=== PATIENT | male | born 1970 | race Hispanic/Latino ===

== ENCOUNTER 2021-12-01 11:34 | Emergency (ER) | payer SELFPAY ==
[2021-12-01] MEDS ORDERED: SODIUM CHLORIDE 0.9% 1000 ML 1,000 ML IV ONE (12:01)
--- NOTE | 2021-12-01 12:03 | Emergency Department Report ---
ED Shortness of Breath HPI - General Chief Complaint: Dyspnea/Respdistress Stated Complaint: CAN'T HARDLEY BREATH Time Seen by Provider: 12/01/21 11:55 Source: patient Mode of arrival: Ambulatory Limitations: No Limitations - History of Present Illness Initial Comments: Patient presents with exertional dyspnea. This been present for 4 days. He cannot get up and walk to the restroom without getting short of breath. He has to stop and rest. He states that he really is not been able to sleep well. He does not know if that is because he is short of breath all the time because he cannot lie flat. He has had no cough or congestion. Has no chest pain. He has had swelling in his feet but that is not new. That has been ongoing and chronic for him. There is no recent history of travel or trauma. He has no chest pain. Patient has had no fevers or chills. He has never had symptoms of this nature before. Because of the exertional dyspnea, he came here for evaluation. - Related Data Previous Rx's Medication Instructions Recorded Last Taken Type Furosemide [Lasix TAB] 40 mg PO QDAY #15 tablet 12/01/21 Unknown Rx Potassium Chloride 20 meq PO BID #30 tab 12/01/21 Unknown Rx Allergies Allergy/AdvReac Type Severity Reaction Status Date / Time No Known Allergies Allergy Verified 12/01/21 14:53 ED Review of Systems ROS: Stated complaint: CAN'T HARDLEY BREATH Other details as noted in HPI Comment: All other systems reviewed and negative Constitutional: denies: fever Eyes: denies: eye pain ENT: denies: throat pain Respiratory: denies: cough Cardiovascular: as per HPI Endocrine: denies: unexplained weight loss Gastrointestinal: denies: abdominal pain Genitourinary: denies: dysuria Musculoskeletal: denies: back pain Skin: denies: rash Neurological: denies: headache Hematological/Lymphatic: denies: easy bruising ED Past Medical Hx - Past Medical History Previous Medical History?: No - Family History Family history: no significant - Social History Smoking Status: Never Smoker Substance Use Type: None - Medications Home Medications: Home Medications Medication Instructions Recorded Confirmed Last Taken Type Furosemide [Lasix TAB] 40 mg PO QDAY #15 tablet 12/01/21 Unknown Rx Potassium Chloride 20 meq PO BID #30 tab 12/01/21 Unknown Rx ED Physical Exam - General Limitations: No Limitations, Other (Pulse ox noted and normal) General appearance: alert, in distress (Mild), other (Nontoxic) - Head Head exam: Present: atraumatic, normocephalic - Eye Eye exam: Present: normal appearance, PERRL, EOMI - ENT ENT exam: Present: normal orophraynx, normal external ear exam - Neck Neck exam: Present: normal inspection. Absent: meningismus - Respiratory Respiratory exam: Present: normal lung sounds bilaterally, respiratory distress (Mild) - Cardiovascular Cardiovascular Exam: Present: regular rate, normal rhythm. Absent: JVD - GI/Abdominal GI/Abdominal exam: Present: soft. Absent: distended, tenderness - Extremities Exam Extremities exam: Present: normal capillary refill, pedal edema (2+ bilateral), calf tenderness - Back Exam Back exam: Absent: CVA tenderness (R), CVA tenderness (L) - Neurological Exam Neurological exam: Present: alert, oriented X3, CN II-XII intact, reflexes normal. Absent: motor sensory deficit - Psychiatric Psychiatric exam: Present: normal affect, normal mood - Skin Skin exam: Present: warm, dry ED Course Vital Signs 12/01/21 12/01/21 12/01/21 11:45 12:01 12:12 Temperature 97.7 F Pulse Rate 108 H 111 H 110 H Respiratory 22 18 22 Rate Blood Pressure 138/101 134/104 Blood Pressure 134/104 [Right] O2 Sat by Pulse 97 97 96 Oximetry 12/01/21 12/01/21 12/01/21 12:13 12:15 12:31 Temperature Pulse Rate 110 H 108 H Respiratory 19 Rate Blood Pressure 141/103 Blood Pressure [Right] O2 Sat by Pulse 100 97 Oximetry 12/01/21 12/01/21 12/01/21 13:01 13:31 14:01 Temperature Pulse Rate 107 H 107 H 113 H Respiratory 23 18 30 H Rate Blood Pressure 155/110 151/119 130/87 Blood Pressure [Right] O2 Sat by Pulse 93 97 97 Oximetry 12/01/21 12/01/21 12/01/21 14:31 15:17 15:31 Temperature Pulse Rate 110 H Respiratory Rate Blood Pressure 140/93 144/92 125/86 Blood Pressure [Right] O2 Sat by Pulse 97 96 96 Oximetry 12/01/21 12/01/21 16:01 16:11 Temperature Pulse Rate 105 H Respiratory 22 Rate Blood Pressure 144/87 Blood Pressure 144/87 [Right] O2 Sat by Pulse 95 95 Oximetry - Reevaluation(s) Reevaluation #1: 12/01/21 12:03 EKG was noted. Labs and x-ray ordered. Old records reviewed. Reevaluation #2: 12/01/21 13:50 CT angiogram was ordered. D-dimer was elevated. Age-adjusted D-dimer did not exclude PE. Patient was tachycardic and 49 so PERC criteria could not be used. Reevaluation #3: 12/01/21 16:27 CT was noted. Patient does have evidence of new onset CHF. Case was discussed with Dr. Rdz who agrees to admit. After this had been planned, the patient has now changed his mind and decided to sign out AGAINST MEDICAL ADVICE. I had a long discussion with him about risk, benefits, alternatives. He states that he just got a new job but he cannot afford to lose that job. He admits that he is a convicted felon and just does not have the ability to miss work. Patient states that he will follow-up as an outpatient. He was invited to return at any point but did sign out AMA. ED Medical Decision Making - Lab Data Result diagrams: 12/01/21 12:32 12/01/21 12:32 Rhythm strip: Normal sinus rhythm without ectopy. Monitor observe 10 seconds. - EKG Data -: EKG Interpreted by Me - EKG Data When compared to previous EKG there are: previous EKG unavailable 12/01/21 12:03 1154-EKG shows sinus tachycardia 111. Intervals are normal including a QRS of 90 and a QT corrected of 471. Patient has no ST elevation to suggest STEMI. There is T wave flattening in 1 and aVL. Patient has poor R wave progression. There is T wave flattening in V6. Patient has no old EKG for comparison. - Radiology Data Radiology results: report reviewed - Medical Decision Making Patient presented with exertional dyspnea and pedal edema. He certainly had evidence of pulmonary edema and new onset CHF. There was no evidence of pulmonary embolism. He did not have pneumonia. I had a discussion with him and he had ultimately signed out AGAINST MEDICAL ADVICE. We discussed admission including further testing including serial troponins and echocardiogram. We discussed cardiac consultation. He flatly refused. He states that he could not afford to lose his job. He just got a job yesterday. He stated that "as a convicted felon, that is difficult to do." He stated that he would be happy to follow-up as an outpatient. He however would not hear of being admitted and signed out AMA. He was invited to return at any point. Critical Care Time: No Critical care attestation.: If time is entered above; I have spent that time in minutes in the direct care of this critically ill patient, excluding procedure time. ED Disposition Clinical Impression: Exertional shortness of breath, Pulmonary edema Disposition: LEFT AGAINST MEDICAL ADVICE Is pt being admited?: No Condition: Stable Instructions: Pulmonary Edema, Pulmonary Edema (ED) Additional Instructions: Elevate the feet. Avoid salt. Return for problems. If you change your mind about being admitted please return at any time. Follow-up with the referral doctors as discussed. Prescriptions: Furosemide [Lasix TAB] 40 mg PO QDAY #15 tablet Potassium Chloride 20 meq PO BID #30 tab Referrals: CHARLI SMITH MD [Staff Physician] - 3-5 Days LICHA PANDYA MD [Staff Physician] - 3-5 Days Forms: AMA Form
--- NOTE | 2021-12-01 12:24 | XRay Report ---
CHEST 2 VIEWS INDICATION / CLINICAL INFORMATION: soa. COMPARISON: None available. FINDINGS: SUPPORT DEVICES: None. HEART / MEDIASTINUM: Mildly enlarged. LUNGS / PLEURA: Mild prominence pulmonary vasculature. No focal consolidation. Suspect a small left p leural effusion. No pneumothorax. ADDITIONAL FINDINGS: No significant additional findings. IMPRESSION: 1. Cardiomegaly with mild pulmonary edema and suspected small left effusion. Signer Name: Will Austin MD Signed: 12/01/2021 12:20 PM Workstation Name: [id number]
[2021-12-01 12:59] LABS: Basophils # (Auto) 0.1 K/mm3 (0.0-0.1); Basophils % (Auto) 0.8 % (0.0-1.8); Eosinophils # (Auto) 0.1 K/mm3 (0.0-0.4); Eosinophils % (Auto) 1.2 % (0.0-4.3); Hematocrit 42.2 % (35.5-45.6); Hemoglobin 13.5 gm/dl (11.8-15.2); Lymphocytes # (Auto) 1.2 K/mm3 (1.2-5.4); Lymphocytes % (Auto) 16.9 % (13.4-35.0); Mean Corpuscular HGB Conc 32 % (32-34); Mean Corpuscular Volume 95 fl (84-94); Monocytes # (Auto) 0.5 K/mm3 (0.0-0.8); Monocytes % (Auto) 7.2 % (0.0-7.3); Platelet Count 212 K/mm3 (140-440); Red Blood Count 4.42 M/mm3 (3.65-5.03); Red Cell Distribution Width 14.9 % (13.2-15.2)
[2021-12-01 13:05] LABS: Calcium 9.2 mg/dL (8.4-10.2)
[2021-12-01] MEDS ORDERED: FUROSEMIDE 40 MG/4 ML INJ IV ONE (13:07)
--- NOTE | 2021-12-01 15:38 | Cat Scan Report ---
CT angio chest INDICATION / CLINICAL INFORMATION: Hypoxia, elevated D-dimer omni 350 100ml . TECHNIQUE: Axial CT images were obtained through the chest after injection of 100 cc Omni 350 IV cont rast. 3 plane MIP and/or 3D reconstructions were produced. All CT scans at this location are performe d using CT dose reduction for ALARA by means of automated exposure control. COMPARISON: Chest radiograph from same day FINDINGS: PULMONARY ARTERIES: No central or segmental pulmonary embolus. THORACIC AORTA: No significant abnormality. HEART: The heart is enlarged. No severe pericardial effusion. No significant coronary artery calcific ations. LYMPHADENOPATHY: Enlarged mediastinal lymph nodes, to include right paratracheal lymph node measuring 1.8 cm in short axis. Prominent but nonenlarged hilar lymph nodes. No axillary lymphadenopathy. LUNGS/PLEURA: Small-moderate bilateral pleural effusions, right greater than left. There is interlobu lar septal thickening. No focal airspace disease. No pneumothorax. OTHER FINDINGS: None. UPPER ABDOMEN: No acute findings. SKELETAL SYSTEM: No acute osseous findings. IMPRESSION: 1. No evidence of pulmonary embolism. 2. CHF with pulmonary edema and small to moderate bilateral pleural effusions, right greater than lef t. No acute airspace disease. 3. Nonspecific enlarged mediastinal lymph nodes. This is of uncertain etiology and appears greater th an expected with reactive lymphadenopathy. Recommend short-term CT follow-up, following resolution of acute process. Signer Name: Real Garcia MD Signed: 12/01/2021 3:34 PM Workstation Name: [id number]
[2021-12-01 16:57] VITALS: BP 146/88
--- NOTE | 2021-12-02 09:22 | Electrocardiograph Report ---
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
== END 2021-12-01 16:57 | disposition left against medical advice (07) ==
LOC: ED 11:34
DX: J81.1 Chronic pulmonary edema (principal); Z79.899 Other long term (current) drug therapy
CPT/HCPCS: 36415; 71046; 71275; 80048; 84484; 85025; 85379; 93005; 96361; 96374; 99284; J1940; J7030; Q9967; Q0162

== ENCOUNTER 2021-12-24 11:01 | Emergency (ER) | payer BC ==
[2021-12-24] MEDS ORDERED: FUROSEMIDE 40 MG/4 ML INJ IV ONE (11:55)
--- NOTE | 2021-12-24 11:59 | Emergency Department Report ---
HPI - General Chief Complaint: Dyspnea/Respdistress Time Seen by Provider: 12/24/21 11:43 - HPI HPI: Room 6 Patient is a 52-year-old male present with chief complaint of shortness of breath. Patient states she carries a diagnosis of congestive heart failure but ran out of his Lasix approximately 2 weeks ago. Patient states since that time he has had intermittent substernal chest tightness, shortness of breath and dyspnea on exertion. Patient states going upstairs to his home causes him to stop and catch his breath. Patient states he has had bilateral lower extremity edema for the past 2 weeks as well. Patient denies nausea/vomiting but admits to diaphoresis with this chest tightness. Patient states he currently does not have any chest pain. Patient states he's never had a stress test or cardiac catheterization ED Past Medical Hx - Past Medical History Hx Congestive Heart Failure: Yes - Surgical History Past Surgical History?: No - Family History Family history: no significant - Social History Smoking Status: Former Smoker (None [id number]) Substance Use Type: None (Denies illicit drug use), Alcohol (Occasional) - Medications Home Medications: Home Medications Medication Instructions Recorded Confirmed Last Taken Type Furosemide [Lasix TAB] 40 mg PO QDAY #15 tablet 12/01/21 Unknown Rx Potassium Chloride 20 meq PO BID #30 tab 12/01/21 Unknown Rx Furosemide [Lasix TAB] 40 mg PO QDAY #90 tablet 12/24/21 Unknown Rx ED Review of Systems ROS: Stated complaint: SOB Other details as noted in HPI Constitutional: diaphoresis Eyes: denies: eye pain ENT: denies: throat pain Respiratory: shortness of breath, SOB with exertion Cardiovascular: chest pain Endocrine: no symptoms reported Gastrointestinal: denies: abdominal pain Genitourinary: denies: dysuria Musculoskeletal: denies: back pain Neurological: denies: headache Hematological/Lymphatic: other (Bilateral lower extremity edema) Physical Exam - Physical Exam Vital Signs: Vital Signs 12/24/21 11:44 Temperature 98.4 F Pulse Rate 110 H Respiratory 28 H Rate Blood Pressure 138/93 [Left] O2 Sat by Pulse 97 Oximetry Physical Exam: GENERAL: The patient is well-developed well-nourished male lying on stretcher not appearing to be in acute distress. [] HEENT: Normocephalic. Atraumatic. Extraocular motions are intact. Patient has moist mucous membranes. NECK: Supple. Trachea midline CHEST/LUNGS: No crackles appreciated. There is no respiratory distress noted. HEART/CARDIOVASCULAR: Regular. There is no tachycardia. There is no gallop rub or murmur. ABDOMEN: Abdomen is soft, nontender. Patient has normal bowel sounds. There is no abdominal distention. SKIN: There is no rash. There is 2+ bilateral lower extremity pitting edema. There is no diaphoresis. NEURO: The patient is awake, alert, and oriented. The patient is cooperative. The patient has no focal neurologic deficits. The patient has normal speech MUSCULOSKELETAL: There is no evidence of acute injury. ED Course Vital Signs 12/24/21 11:44 Temperature 98.4 F Pulse Rate 110 H Respiratory 28 H Rate Blood Pressure 138/93 [Left] O2 Sat by Pulse 97 Oximetry - Reevaluation(s) Reevaluation #1: 12/24/21 14:59 Patient states he feels much improved. Patient ambulating in ED without diff iculty ED Medical Decision Making - Lab Data Result diagrams: 12/24/21 12:06 12/24/21 12:06 Laboratory Tests 12/24/21 12/24/21 12:06 12:06 WBC 8.3 RBC 4.19 Hgb 13.2 Hct 39.6 MCV 95 H MCH 32 MCHC 33 RDW 14.1 Plt Count 187 Lymph % (Auto) 10.9 L Alcorn % (Auto) 7.9 H Eos % (Auto) 1.2 Baso % (Auto) 0.6 Lymph # (Auto) 0.9 L [place] # (Auto) 0.7 Eos # (Auto) 0.1 Baso # (Auto) 0.0 Seg Neutrophils % 79.4 H Seg Neutrophils # 6.6 Sodium 140 Potassium 4.3 Chloride 106.0 Carbon Dioxide 19 L Anion Gap 19 BUN 24 H Creatinine 1.4 H Estimated GFR 53 BUN/Creatinine Ratio 17 Glucose 100 Calcium 8.4 Total Creatine Kinase 94 CK-MB (CK-2) 4.6 H CK-MB (CK-2) Rel Index 4.8 H Troponin T < 0.010 NT-Pro-B Natriuret Pep 6172 H - EKG Data -: EKG Interpreted by Sc EKG shows normal: sinus rhythm Rate: tachycardia (103 bpm) - EKG Data Interpretation: nonspecific ST-T wave reina (T wave inversion lead aVL) - Radiology Data Radiology results: report reviewed (Chest x-ray), image reviewed (Chest x-ray) interpreted by me: Chest [id number] haziness/CHF. No pneumothorax [facility] [address] [place] [address] XRay Report Signed Patient: ANDERSON MICHELLE MR#: [id number] : 1970 Acct:[id number] Age/Sex: 51 / M ADM Date: 12/24/21 Loc: ED Attending Dr: Ordering Physician: ELEAZAR MARS MD Date of Service: 12/24/21 Procedure(s): XR chest 1V ap Accession Number(s): [id number] cc: ELEAZAR MARS MD Fluoro Time In Minutes: CHEST 1 VIEW 12/24/2021 12:00 PM INDICATION / CLINICAL INFORMATION: SOB, dyspnea on exertion. COMPARISON: 12/01/2021 FINDINGS: SUPPORT DEVICES: None. HEART / MEDIASTINUM: Stable mild cardiomegaly. LUNGS / PLEURA: Stable mild pulmonary vascular congestion. No pneumothorax. ADDITIONAL FINDINGS: No significant additional findings. IMPRESSION: 1. Stable findings likely indicating mild CHF. Signer Name: Reinaldo Ceja MD Signed: 12/24/2021 12:31 PM Workstation Name: [id number] Transcribed By: MARYURI Dictated By: Reinaldo Ceja MD Electronically Authenticated By: Reinaldo Ceja MD Signed Date/Time: 12/24/21 1231 DD/ 1231 TD/TT: - Differential Diagnosis CHF exacerbation Critical care attestation.: If time is entered above; I have spent that time in minutes in the direct care of this critically ill patient, excluding procedure time. 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 Please follow-up with him for further evaluation) Time of Disposition: 15:01
--- NOTE | 2021-12-24 12:40 | XRay Report ---
CHEST 1 VIEW 12/24/2021 12:00 PM INDICATION / CLINICAL INFORMATION: SOB, dyspnea on exertion. COMPARISON: 12/01/2021 FINDINGS: SUPPORT DEVICES: None. HEART / MEDIASTINUM: Stable mild cardiomegaly. LUNGS / PLEURA: Stable mild pulmonary vascular congestion. No pneumothorax. ADDITIONAL FINDINGS: No significant additional findings. IMPRESSION: 1. Stable findings likely indicating mild CHF. Signer Name: Reinaldo Ceja MD Signed: 12/24/2021 12:31 PM Workstation Name: [id number]
[2021-12-24 13:36] LABS: Basophils % (Auto) 0.6 % (0.0-1.8); Eosinophils # (Auto) 0.1 K/mm3 (0.0-0.4); Eosinophils % (Auto) 1.2 % (0.0-4.3); Hematocrit 39.6 % (35.5-45.6); Hemoglobin 13.2 gm/dl (11.8-15.2); Lymphocytes # (Auto) 0.9 K/mm3 (1.2-5.4); Lymphocytes % (Auto) 10.9 % (13.4-35.0); Mean Corpuscular HGB Conc 33 % (32-34); Mean Corpuscular Volume 95 fl (84-94); Monocytes # (Auto) 0.7 K/mm3 (0.0-0.8); Monocytes % (Auto) 7.9 % (0.0-7.3); Platelet Count 187 K/mm3 (140-440); Red Blood Count 4.19 M/mm3 (3.65-5.03); Red Cell Distribution Width 14.1 % (13.2-15.2)
[2021-12-24 14:03] LABS: Creatine Kinase MB 4.6 ng/mL (0.0-4.0)
[2021-12-24 14:04] VITALS: BP 129/99
[2021-12-24 14:07] LABS: BUN/Creatinine Ratio 17; Blood Urea Nitrogen 24 mg/dL (9-20); Calcium 8.4 mg/dL (8.4-10.2); Hemolysis Index 3
--- NOTE | 2021-12-25 18:02 | Electrocardiograph Report ---
[facility] Test Date: 2021-12-24 Test Time: 11:58:50 Pat Name: ANDERSON MICHELLE Department: Room: Gender: M Folder Tier: EDGAR : 1970 Requested By: BERENICE RM Order Number: [id number] Reading MD: Radhames Campos Measurements Intervals [place] Rate: 103 P: 75 VA: 170 QRS: -19 QRSD: 95 T: 83 QT: 365 QTc: 481 Interpretive Statements Sinus tachycardia Multiform ventricular premature complexes Left atrial enlargement Probable left ventricular hypertrophy Anterior Q waves, possibly due to LVH Compared to ECG 12/01/2021 11:54:14 Ventricular premature complex(es) now present Electronically Signed On 12-25-2021 18:01:38 EDT by Radhames Campos
== END 2021-12-24 15:11 | disposition home or self-care (01) ==
LOC: ED 11:01
DX: I50.9 Heart failure, unspecified (principal); Z87.891 Personal history of nicotine dependence; Z86.79 Personal history of other diseases of the circulatory system
CPT/HCPCS: 36415; 71045; 80048; 82550; 82553; 83880; 84484; 85025; 93005; 99283; J1940

== ENCOUNTER 2022-02-23 02:34 | Emergency (ER) | payer SELFPAY ==
[2022-02-23 02:40] VITALS: BP 118/76
--- NOTE | 2022-02-23 03:16 | XRay Report ---
CHEST 2 VIEWS INDICATION / CLINICAL INFORMATION: COUGH. COMPARISON: Chest x-ray 12/24/2021 FINDINGS: SUPPORT DEVICES: None. HEART / MEDIASTINUM: Mild cardiomegaly appears stable. LUNGS / PLEURA: No significant pulmonary or pleural abnormality. No pneumothorax. BONES: No significant osseous abnormality. ADDITIONAL FINDINGS: No significant additional findings. IMPRESSION: 1. No active cardiopulmonary disease. Signer Name: Deven Gipson II, MD Signed: 02/23/2022 3:12 AM Workstation Name: [id number]
== END 2022-02-23 04:00 | disposition left against medical advice (07) ==
LOC: ED 02:34
DX: R06.00 Dyspnea, unspecified (principal); Z53.21 Procedure and treatment not carried out due to patient leaving prior to being seen by health care provider
CPT/HCPCS: 71046

== ENCOUNTER 2022-02-23 19:16 | Emergency (ER) | payer SELFPAY ==
[2022-02-23 21:48] VITALS: BP 134/72
== END 2022-02-23 23:15 | disposition left against medical advice (07) ==
LOC: ED 19:16
DX: R60.0 Localized edema (principal); Z53.21 Procedure and treatment not carried out due to patient leaving prior to being seen by health care provider